=== PATIENT | female | born 1940 | race Caucasian/White ===

== ENCOUNTER 2019-09-28 20:00 | Emergency (ER) | payer MEDICARE, SELFPAY ==
--- NOTE | ~2019-09-28 | XR_ITS ---
EXAMINATION: XR humerus LT, XR shoulder LT min 2V EXAM DATE: 09/28/2019 20:33 (accession [id number]), 09/28/2019 20:34 (accession [id number]) INDICATION: Initial encounter following injury, with pain of the left shoulder. TECHNIQUE: The following left shoulder projections obtained: frontal projection , Grashey, and scapul ar Y view (4+ views). 2 orthogonal projections left humerus. There is no prior study for comparison. FINDINGS: Acute closed posttraumatic and mildly comminuted fracture of the left humeral neck and grea ter tuberosity. There could be some impaction but only mild displacement. There is no humeral disloca tion. Scapula, other portions of the humerus are unremarkable. IMPRESSION: Acute left humeral neck/greater tuberosity fractures. Reviewed, dictated and finalized at location . IMPRESSION: Acute left humeral neck/greater tuberosity fractures.
[2019-09-28 20:04] VITALS: BP 178/71; PULSE 64; RESP 15; TEMP 37; O2SAT 100
--- NOTE | 2019-09-28 20:05 | ED.UPPEXIN ---
HPI - Extremity Injury (Upper) General Chief Complaint: Extremity Injury, Upper Stated Complaint: FALL Time Seen by Provider: 09/28/19 20:05 History of Present Illness HPI narrative: She tripped over her shoes and fell backwards into a marble table. She struck her shoulder. She has pain in the lateral upper arm. The pain is mild with the arm at her side. Worse with flexion at the elbow and shoulder abduction. She did not hit her head. No other pain or injury. Related Data Allergies Allergy/AdvReac Type Severity Reaction Status Date / Time amlodipine Allergy Unknown Rash Verified 10/01/19 10:45 Penicillins Allergy Unknown Unknown Verified 10/01/19 10:45 Review of Systems Review of Systems: All systems reviewed & are unremarkable except as noted in HPI and below Constitutional: Constitutional: Denies weakness Eyes: Eyes: Denies change in vision Cardiovascular: Cardiovascular: Denies chest pain Respiratory: Respiratory: Denies dyspnea Musculoskeletal: Musculoskeletal: Denies back pain Neurologic: Denies dizziness, Denies syncope, Denies numbness and Denies weakness [facility] Family History Family History Mother Diabetes mellitus Hypertension Social History Social History Smoking status: Never smoker Second hand tobacco smoke exposure: No Alcohol intake: never Exam Const: General: healthy appearing, no acute distress and alert Orientation/consciousness: patient oriented x3 HENMT: Head: normal to inspection Resp: Effort & Inspection: normal respiratory effort Cardio: Other: 2 + left radial pulse Skin: General skin exam: normal color Wounds: no wounds Neuro: General: patient oriented x3, moves all extremities and CN's II-XI intact bilaterally Speech: normal speech Extrem: Other: Normal appearance. Pain with active ROM in elbow and shoulder. Resists passive ROM. Course Vital Signs Vital signs: Vital Signs Temperature 37.0 C 09/28/19 20:04 Pulse Rate 64 09/28/19 20:04 Respiratory Rate 15 09/28/19 20:04 Blood Pressure 178/71 H 09/28/19 20:04 Pulse Oximetry 100 09/28/19 20:04 Temperature 37.0 C 09/28/19 20:04 Pulse Rate 64 09/28/19 20:04 Respiratory Rate 15 09/28/19 20:04 Blood Pressure 178/71 H 09/28/19 20:04 Pulse Oximetry 100 09/28/19 20:04 MDM - Extremity Injury (Upper) Medical Records Attestation: I reviewed the patient's medical records. Imaging Data Radiologist's impression: ITS Impressions Humerus X-Ray 09/28/19 20:37 IMPRESSION: Acute left humeral neck/greater tuberosity fractures. Shoulder X-Ray 09/28/19 20:37 IMPRESSION: Acute left humeral neck/greater tuberosity fractures. Discharge Plan Discharge Clinical Impression: Fracture of neck of humerus Patient Disposition: Home, Self-Care Condition: Stable Instructions: Proximal Humerus Fracture (ED) Prescriptions: No Action hydrocodone-acetaminophen [[place]] 5-325 mg tablet 1 tablet PO Q6H PRN (Reason: pain) Qty: 20 RF: 0 metoprolol succinate 25 mg tablet extended release 24 hr 25 mg PO DAILY Qty: 90 RF: 3 valsartan-hydrochlorothiazide 320-25 mg tablet 1 tablet PO DAILY Qty: 90 RF: 3 hydralazine 50 mg tablet 50 mg PO BID Qty: 180 RF: 1 Follow-up/Referrals: Zina Salas MD [Primary Care Provider] - Fede Martinez MD [Physician] - 2 Days Discharge Date/Time: 09/28/19 21:39
[2019-09-28] MEDS: IBUPROFEN 600 MG TABLET PO (20:36)
== END 2019-09-28 21:39 | disposition home or self-care (01) ==
PROVIDERS: Emergency Provider Emergency Medicine; PCP Family Medicine
DX: S42.252A Displaced fracture of greater tuberosity of left humerus, initial encounter for closed fracture (principal); S42.292A Other displaced fracture of upper end of left humerus, initial encounter for closed fracture; W18.09XA Striking against other object with subsequent fall, initial encounter
CPT/HCPCS: 73030; 73060; 99283; 99284; A9270

== ENCOUNTER 2019-12-11 11:41 | Inpatient (IN) | payer MEDICARE, SELFPAY ==
[2019-12-11 12:25] VITALS: BMI 30.3
--- NOTE | 2019-12-11 13:23 | PM.IMHP ---
H&P: HPI History of Present Illness Date/Time: 12/11/19 13:23 Chief complaint: hyponatremia Narrative: Gretchen Stephenson is a 79 year old female Who has a history of having hypertension. The patient has been on various blood pressure medication. She has been on valsartan with hydrochlorothiazide. Patient stated that her legs have been weak and that she feels like she cannot grain picker her feet that they are shuffling. She denies feeling dizzy or lightheaded. She says she is pretty active. She was a physical therapy. She had a fall about 3 months ago she broke her left humerus and had been going to physical therapy for that. She had seen Dr. Martinez in for the left humerus fracture. The patient went for routine checkup yesterday at her primary care doctor's office Dr. risa Salas and she had some labs drawn yesterday. Today she was called by primary care doctor explaining that her sodium was 116 and that she needed to come to be admitted to the hospital. The patient is very anxious about being admitted. She was a direct admit from home. She has already taken all over medication from home. Patient was admitted to medical-surgical floor for observation date of service is 12/11/2019 Review of Systems Review of Systems: All systems reviewed & are unremarkable except as noted in HPI and below Constitutional: Constitutional: Reports as per HPI and Reports no additional constitutional complaints Eyes: Eyes: Reports as per HPI and Reports no additional eye complaints ENT: Reports system reviewed and no additional complaints, except as documented and Reports Normal hearing present Cardiovascular: Cardiovascular: Reports no additional cardiovascular complaints Respiratory: Respiratory: Reports no additional respiratory complaints and Reports no additional respiratory complaints Gastrointestinal: Gastrointestinal: Reports as per HPI and Reports no additional gastrointestinal complaints Musculoskeletal: Musculoskeletal: Reports no additional musculoskeletal complaints Integumentary/Breasts: Skin/Breast: Reports system reviewed and no additional complaints, except as docu and Reports as per HPI Neurologic: Reports system reviewed and no additional complaints, except as documented, Reports as per HPI and Reports Normal hearing present Psychiatric: Psychiatric: Reports no additional psychiatric complaints and Reports as per HPI Endocrine: Endocrine: Reports no additional endocrine complaints Hematologic/Lymphatic: Hematologic/Lymphatic: Reports no additional hematologic/lymphatic complaints Allergic/Immunologic: Allergic/Immunologic: Reports no additional allergic/immunologic complaints [facility] Past Medical History Medical History (Updated 12/11/19 @ 13:27 by Shani Sage NP) Fracture of proximal end of left humerus Hypertension Seasonal allergies Surgical History Surgical History (Updated 12/11/19 @ 13:26 by Shani Sage NP) S/P tonsillectomy and adenoidectomy Family History Family History (Updated 12/11/19 @ 13:27 by Shani Sage NP) Mother Diabetes mellitus Hypertension Father Malignant neoplasm of prostate Sibling due to motor vehicle traffic accident Social History Social History Smoking status: Never smoker Second hand tobacco smoke exposure: No Alcohol intake: never Substance use: never Substance use type: does not use Gender identity (if verbalized by the patient): Female Spiritual care concerns: Yes Agree to blood products: Yes Meds Home Medications and Allergies Home Medications Medication Instructions Recorded Confirmed Type metoprolol succinate 25 mg 25 mg PO DAILY #90 tablet 04/10/19 12/11/19 Rx tablet,extended release 24 hr hydralazine 50 mg tablet 50 mg PO BID #180 tablet 08/07/19 12/11/19 Rx fluticasone propionate 50 1 spray INTRANASAL BID PRN MDD 10 12/09/19 12/11/19 History mcg/actuation na
--- NOTE | 2019-12-11 13:44 | ADMGEN ---
This patient, Gretchen Stephenson, was admitted to [facility] Surg Room 311-01. Patient/family oriented to hospital policies and general routines including ID bracelet, bed and alarms, visiting hours, pain management, procedures, bathroom and other care routines, personal items, smoking policy, room service/diet, and visiting hours. Information on how to activate the Rapid Response Team has been discussed. Patient/Family are encouraged to report perceived risks to care and to ask questions if they do not understand what they are told or what they should do.
[2019-12-11 13:47] LABS: Basophils Absolute Auto 0.1 K/mm3 (0.0-0.1); Basophils Percent Auto 0.7 % (0.2-1.2); Eosinophils Percent Auto 0.3 % (0-4.4); Hematocrit 32.5 % (37.0-47.0); Hemoglobin 11.5 g/dL (12.0-15.0); Immature Granulocyte Absolute 0.05 K/mm3 (0.00-0.031); Immature Granulocyte Percent A 0.5 % (0-0.5); Lymphocytes Absolute Auto 1.43 K/mm3 (0.9-3.2); Lymphocytes Percent Auto 14.1 % (18.3-44.2); Mean Corpuscular HGB Conc 35.4 g/dl (32-36); Mean Corpuscular Hemoglobin 29.6 pg (26-34); Mean Corpuscular Volume 83.5 fl (80-100); Mean Platelet Volume 9.8 fl (7.4-10.4); Monocytes Absolute Auto 0.8 K/mm3 (0.1-0.6); Monocytes Percent Auto 7.6 % (2.6-8.5); Neutrophils Absolute Auto 7.8 K/mm3 (1.3-6.7); Neutrophils Percent Auto 76.8 % (45.5-73.1); Platelet Count Result 329 k/mm3 (150-375); Red Blood Count 3.89 M/mm3 (4.2-5.4); Red Cell Distribution Width 12.3 % (11.5-14.5); White Blood Count 10.2 K/mm3 (4.5-10.0)
[2019-12-11 14:00] LABS: Magnesium 1.7 mg/dL (1.6-2.3)
[2019-12-11 14:05] LABS: Anion Gap 11 mmol/L (8-16); Blood Urea Nitrogen 17 mg/dL (7-17); Calcium 9.8 mg/dL (8.4-10.2); Carbon Dioxide 29 mmol/L (22-30); Chloride 80 mmol/L (98-107); Estimated CRCL calculation 49 ml/min; Estimated Glomerular Filt Rate > 60; Glucose 105 mg/dL (65-105); Potassium 4.8 mmol/L (3.4-5.0); Sodium 120 mmol/L (137-145)
[2019-12-11] MEDS: SODIUM CHLORIDE 0.45% 1,000 ML 75 ML IV CONT (14:33)
[2019-12-11 16:00] VITALS: BP 152/63; PULSE 66; RESP 18; TEMP 36.8; O2SAT 99
[2019-12-11] MEDS: hydrALAZINE HCL 50 MG TABLET PO (17:00)
[2019-12-11 18:54] LABS: Add Urine Microscopic? YES; Appearance Urine Clear (Clear); Bilirubin Urine Negative (Negative); Blood Urine Negative (Negative); Color Urine Yellow (Yellow); Glucose Urine UA Negative (Negative); Ketones Urine Negative (Negative); Leukocyte Esterase Ur 1+ LEU/UL (Negative); Mucus Urine Rare /lpf; Nitrate Urine Negative (Negative); Protein Urine 1+ mg/dL (Negative); Specific Grav Ur 1.011 (1.001-1.035); Urobilinogen Urine Negative mg/dL (<2.0)
[2019-12-11 18:56] LABS: Potassium Urine Random 36.5 meq/L; Sodium Urine Random 52 meq/L
[2019-12-11 19:00] LABS: Urine Cotinine NEGATIVE
[2019-12-11 20:00] VITALS: BP 148/60; PULSE 59; RESP 18; TEMP 36.7; O2SAT 99
[2019-12-11 20:44] LABS: Anion Gap 7 mmol/L (8-16); Blood Urea Nitrogen 19 mg/dL (7-17); Calcium 9.4 mg/dL (8.4-10.2); Carbon Dioxide 29 mmol/L (22-30); Chloride 81 mmol/L (98-107); Estimated CRCL calculation 40 ml/min; Estimated Glomerular Filt Rate 48; Glucose 103 mg/dL (65-105); Potassium 4.5 mmol/L (3.4-5.0); Sodium 117 mmol/L (137-145)
[2019-12-11] MEDS: SODIUM CHLORIDE 0.9% IV 1,000 ML 75 ML IV CONT (21:28)
[2019-12-12 05:52] LABS: Basophils Absolute Auto 0.1 K/mm3 (0.0-0.1); Eosinophils Absolute Auto 0.1 K/mm3 (0-0.3); Eosinophils Percent Auto 1.3 % (0-4.4); Hematocrit 33.1 % (37.0-47.0); Hemoglobin 11.8 g/dL (12.0-15.0); Immature Granulocyte Absolute 0.05 K/mm3 (0.00-0.031); Immature Granulocyte Percent A 0.5 % (0-0.5); Lymphocytes Absolute Auto 1.81 K/mm3 (0.9-3.2); Lymphocytes Percent Auto 19.3 % (18.3-44.2); Mean Corpuscular HGB Conc 35.6 g/dl (32-36); Mean Corpuscular Hemoglobin 29.8 pg (26-34); Mean Corpuscular Volume 83.6 fl (80-100); Monocytes Absolute Auto 0.9 K/mm3 (0.1-0.6); Monocytes Percent Auto 9.9 % (2.6-8.5); Neutrophils Absolute Auto 6.4 K/mm3 (1.3-6.7); Platelet Count Result 326 k/mm3 (150-375); Red Blood Count 3.96 M/mm3 (4.2-5.4); Red Cell Distribution Width 12.2 % (11.5-14.5); White Blood Count 9.4 K/mm3 (4.5-10.0)
[2019-12-12 05:53] VITALS: BP 160/82; PULSE 64; RESP 18; TEMP 36.4; O2SAT 98
[2019-12-12 06:07] LABS: Anion Gap 10 mmol/L (8-16); Blood Urea Nitrogen 17 mg/dL (7-17); Calcium 9.4 mg/dL (8.4-10.2); Carbon Dioxide 26 mmol/L (22-30); Chloride 84 mmol/L (98-107); Estimated CRCL calculation 54 ml/min; Estimated Glomerular Filt Rate > 60; Glucose 103 mg/dL (65-105); Sodium 120 mmol/L (137-145)
[2019-12-12 08:26] VITALS: PULSE 80
[2019-12-12] MEDS: METOPROLOL SUCCINATE EXT REL 25 MG TABCR PO (08:26)
[2019-12-12] MEDS: hydrALAZINE HCL 50 MG TABLET PO ×2 (08:26→17:44)
[2019-12-12 08:30] VITALS: PULSE 80; RESP 18; O2SAT 98
[2019-12-12 10:11] LABS: Anion Gap 11 mmol/L (8-16); Blood Urea Nitrogen 16 mg/dL (7-17); Calcium 9.5 mg/dL (8.4-10.2); Carbon Dioxide 27 mmol/L (22-30); Chloride 86 mmol/L (98-107); Estimated CRCL calculation 44 ml/min; Estimated Glomerular Filt Rate 54; Glucose 131 mg/dL (65-105); Potassium 4.2 mmol/L (3.4-5.0); Sodium 124 mmol/L (137-145)
[2019-12-12] MEDS: SODIUM CHLORIDE 0.9% IV 1,000 ML 75 ML IV CONT (12:53)
--- NOTE | 2019-12-12 14:04 | PM.IMPN ---
Progress Note: A&P Assessment and Plan (1) Hyponatremia: Code(s): E87.1 - Hypo-osmolality and hyponatremia Status: Acute Assessment and Plan: Patient was referred to ED by PCP for hyponatremia which was noted on routine labs. At presentation, sodium was 120 and declined to 117. She reports poor PO intake. Sodium has improved to 124. Increased by 7 points in 13 hours. She was started on half NS and transitioned to NS. Will discontinue NS at this time to prevent too rapid correction. Discontinue fluid restriction diet to allow for intake of free water. Repeat sodium level this evening to ensure appropriate rate of correction. Hold HCTZ (2) Hypertension: Code(s): I10 - Essential (primary) hypertension Status: Acute Assessment and Plan: BP evaluated today and is mildly elevated at 160/82. Continue hydralazine and metoprolol Hold HCTZ Monitor blood pressure daily (3) Muscle cramps: Code(s): R25.2 - Cramp and spasm Status: Acute Assessment and Plan: Resolved. Likely secondary to hyponatremia. Additional electrolytes are stable. (4) Fracture of proximal end of left humerus: Qualifiers: Encounter type: subsequent encounter Fracture type: closed Fracture morphology: other fracture Fracture alignment: nondisplaced Code(s): S42.202A - Unspecified fracture of upper end of left humerus, initial encounter for closed fracture Status: Acute Assessment and Plan: Sustained fracture following a fall on 09/28/2019. She has been followed by Dr. Martinez and has been treated conservatively. She is still participating in PT/OT. She denies pain at this time. (5) Seasonal allergies: Code(s): J30.2 - Other seasonal allergic rhinitis Status: Chronic Assessment and Plan: Chronic. No acute issues. Continue fluticasone Subjective Date/time seen: 12/12/19 14:04 Interval history: Date of service: 12/12/2019 Gretchen Stephenson is a 79 year old female with a history of HTN who is seen in follow up for hyponatremia. She feels well and has no complaints at this time. She is eating and drinking well. She denies body aches, cramps, headache, confusion, nausea, vomiting, fever, chills, dizziness, lightheadedness, shortness of breath, cough, chest pain, palpitations, dysuria, or hematuria. Review of Systems Review of Systems: Narrative: 12 systems reviewed with pertinent positives and negatives as per HPI. Exam Narrative: Exam Narrative: Ms. Stephenson is a well-nourished, well-appearing 79-year-old female who is sitting up at the bedside eating lunch. She appears comfortable and is in NARD. HR 64, BP 160/82, RR 18, T 97.6, 98% on room air Neuro: awake, alert and oriented x4, speech clear, no focal neuro deficits noted HEENMT: normocephalic, atraumatic, EOMI, sclerae anicteric, moist oral mucosa, tongue midline, nares patent Neck: supple, no lymphadenopathy Respiratory: clear to auscultation bilaterally, nonlabored breathing Cardio: regular rate, regular rhythm with S1-S2 Abdomen: nondistended, normoactive bowel sounds, soft, nontender to palpation, no rigidity or guarding Extremities: scant pedal edema, no erythema, cyanosis, clubbing, or tenderness to palpation, DP pulses 2+ bilaterally Skin: no rashes or lesions, warm and dry Psych: appropriate mood and affect, judgment and insight intact Objective Data Vital Signs Vital Signs: Vital Signs - 24 hr 12/11/19 16:00 12/11/19 20:00 12/12/19 05:53 Temperature 98.3 F 98.0 F 97.6 F Pulse Rate 66 59 L 64 Respiratory Rate 18 18 18 Blood Pressure 152/63 H 148/60 H 160/82 H Pulse Oximetry 99 99 98 12/12/19 08:26 12/12/19 08:30 Temperature Pulse Rate 80 80 Respiratory Rate 18 Blood Pressure Pulse Oximetry 98 Intake/Output Intake/Output: Intake & Output 12/09/19 12/10/19 12/11/19 12/12/19 23:59 23:59 23:59 23:59 Intake Total 490 17
[2019-12-12 16:00] VITALS: BP 133/42; PULSE 74; RESP 18; TEMP 36.4; O2SAT 100
[2019-12-12 16:41] LABS: Sodium 122 mmol/L (137-145)
[2019-12-12] MEDS: SODIUM CHLORIDE 0.9% IV 1,000 ML 50 ML IV CONT (17:48)
[2019-12-12 22:00] VITALS: BP 163/88; PULSE 86; RESP 16; TEMP 36.7; O2SAT 100
[2019-12-13 00:17] LABS: Sodium 123 mmol/L (137-145)
[2019-12-13 02:00] VITALS: BP 144/69; PULSE 78; RESP 16; TEMP 36.8; O2SAT 100
[2019-12-13 06:00] VITALS: BP 151/64; PULSE 71; RESP 20; TEMP 36.8; O2SAT 95
[2019-12-13 06:25] LABS: Hematocrit 31.3 % (37.0-47.0); Mean Corpuscular HGB Conc 35.1 g/dl (32-36); Mean Corpuscular Hemoglobin 30.6 pg (26-34); Mean Corpuscular Volume 86.9 fl (80-100); Mean Platelet Volume 10.3 fl (7.4-10.4); Platelet Count Result 314 k/mm3 (150-375); Red Cell Distribution Width 12.8 % (11.5-14.5); White Blood Count 9.3 K/mm3 (4.5-10.0)
[2019-12-13 06:36] LABS: Anion Gap 9 mmol/L (8-16); Blood Urea Nitrogen 23 mg/dL (7-17); Calcium 9.5 mg/dL (8.4-10.2); Carbon Dioxide 26 mmol/L (22-30); Chloride 92 mmol/L (98-107); Estimated CRCL calculation 44 ml/min; Estimated Glomerular Filt Rate 54; Glucose 98 mg/dL (65-105); Magnesium 1.9 mg/dL (1.6-2.3); Potassium 4.1 mmol/L (3.4-5.0); Sodium 127 mmol/L (137-145)
[2019-12-13 08:43] VITALS: PULSE 68
[2019-12-13] MEDS: hydrALAZINE HCL 50 MG TABLET PO ×2 (08:43→16:26)
[2019-12-13] MEDS: METOPROLOL SUCCINATE EXT REL 25 MG TABCR PO (08:43)
[2019-12-13 12:09] LABS: Sodium 127 mmol/L (137-145)
[2019-12-13 14:00] VITALS: BP 147/69; PULSE 87; RESP 14; TEMP 36.6; O2SAT 99
--- NOTE | 2019-12-13 14:09 | PM.IMPN ---
Progress Note: A&P Assessment and Plan (1) Hyponatremia: Code(s): E87.1 - Hypo-osmolality and hyponatremia Status: Acute Assessment and Plan: Patient was referred to ED by PCP for hyponatremia which was noted on routine labs. At presentation, sodium was 120 and declined to 117. She reports poor PO fluid intake. She was initially started on half NS and transitioned to NS. Fluid restriction diet was initiated. Sodium inceased by 7 points in 24 hours. NS was discontinued at that time to prevent too rapid correction and fluid restriction was discontinued to promote free water intake. Levels decreased mildly, therefore NS was restarted at slower rate. This morning, sodium was 127, therefore NS was again discontinued. Upon repeat this afternoon, sodium remained stable at 127. Resume NS at 60 ml/hr. Repeat sodium level this evening to ensure appropriate rate of correction. Stop Valsartan-HCTZ. Hopeful discharge tomorrow if sodium continues to improve at appropriate rate and >130. (2) Hypertension: Code(s): I10 - Essential (primary) hypertension Status: Acute Assessment and Plan: BP evaluated today and is fairly well controlled at 151/64. Continue hydralazine and metoprolol Stop valsartan-HCTZ. Will be discontinued at discharge. PCP has already prescribed single-agent valsartan 320 mg daily. Will begin valsartan. Monitor blood pressure daily (3) Muscle cramps: Code(s): R25.2 - Cramp and spasm Status: Acute Assessment and Plan: Resolved. Likely secondary to hyponatremia. Additional electrolytes are stable. (4) Fracture of proximal end of left humerus: Qualifiers: Encounter type: subsequent encounter Fracture type: closed Fracture morphology: other fracture Fracture alignment: nondisplaced Code(s): S42.202A - Unspecified fracture of upper end of left humerus, initial encounter for closed fracture Status: Acute Assessment and Plan: Sustained fracture following a fall on 09/28/2019. She has been followed by Dr. Martinez and has been treated conservatively. She is still participating in PT/OT. She denies pain at this time. (5) Seasonal allergies: Code(s): J30.2 - Other seasonal allergic rhinitis Status: Chronic Assessment and Plan: Chronic. No acute issues. Continue fluticasone Subjective Date/time seen: 12/13/19 14:09 Interval history: Date of service: 12/12/2019 Gretchen Stpehenson is a 79 year old female with a history of HTN who is seen in follow up for hyponatremia. She is feeling well and she has no complaints today. She has been active and moving around her room without any difficulty. She denies body aches or muscle cramps. She has been urinating regularly and denies dysuria or hematuria. Her appetite has been good. She denies nausea, vomiting, fever, chills, dizziness, lightheadedness, shortness breath, cough, or chest pain. Review of Systems Review of Systems: All systems reviewed & are unremarkable except as noted in HPI and below Exam Narrative: Exam Narrative: Ms. Stephenson is a well-nourished, well-appearing 79-year-old female who is sitting in a chair by the bedside. She appears comfortable and is in NARD. HR 71, BP 151/64, RR 20, T 98.3, 95% on room air Neuro: awake, alert and oriented x4, speech clear, no focal neuro deficits noted HEENMT: normocephalic, atraumatic, EOMI, sclerae anicteric, moist oral mucosa, tongue midline, nares patent Neck: supple, no lymphadenopathy Respiratory: clear to auscultation bilaterally, nonlabored breathing Cardio: regular rate, regular rhythm with S1-S2 Abdomen: nondistended, normoactive bowel sounds, soft, nontender to palpation, no rigidity or guarding Extremities: scant pedal edema, no erythema, cyanosis, clubbing, or tenderness to palpation, DP pulses 2+ bilaterally Skin: no rashes or lesions, warm and dry Psych: appropriate mood a
[2019-12-13] MEDS: SODIUM CHLORIDE 0.9% IV 1,000 ML 50 ML IV CONT (14:28)
[2019-12-13 22:00] VITALS: BP 143/55; PULSE 76; RESP 16; TEMP 36.8; O2SAT 100
[2019-12-14 06:00] VITALS: BP 175/64; PULSE 81; RESP 16; TEMP 36.4; O2SAT 99
[2019-12-14 07:17] LABS: Anion Gap 7 mmol/L (8-16); Blood Urea Nitrogen 20 mg/dL (7-17); Calcium 9.3 mg/dL (8.4-10.2); Carbon Dioxide 27 mmol/L (22-30); Chloride 94 mmol/L (98-107); Estimated CRCL calculation 54 ml/min; Estimated Glomerular Filt Rate > 60; Glucose 90 mg/dL (65-105); Potassium 4.6 mmol/L (3.4-5.0); Sodium 128 mmol/L (137-145)
[2019-12-14] MEDS: VALSARTAN 160 MG TABLET 320 MG PO (08:56)
[2019-12-14 08:57] VITALS: PULSE 68
[2019-12-14] MEDS: hydrALAZINE HCL 50 MG TABLET PO (08:57)
[2019-12-14] MEDS: METOPROLOL SUCCINATE EXT REL 25 MG TABCR PO (08:57)
[2019-12-14] MEDS: SODIUM CHLORIDE 0.9% IV 1,000 ML 50 ML IV CONT (09:56)
--- NOTE | 2019-12-14 10:44 | PM.DS ---
DS: Admitting Diagnosis Admitting Diagnosis Admitting Diagnosis: hyponatremia DS: Discharge Diagnosis Discharge Diagnosis (1) Hyponatremia: Code(s): E87.1 - Hypo-osmolality and hyponatremia Status: Acute Assessment and Plan: Patient was directly admitted by PCP for hyponatremia which was noted on routine labs. At presentation, sodium was 120 and declined to 117. She reported poor PO fluid intake. She was initially started on half NS and transitioned to NS. Fluid restriction diet was initiated. Sodium inceased by 7 points in 24 hours. NS was discontinued at that time to prevent too rapid correction and fluid restriction was discontinued to promote free water intake. Levels decreased mildly, therefore NS was restarted at slower rate. Sodium levels stabilized and was 128 at time of discharge with slow upward trend. She will need to repeat sodium level in 1 week. Her HCTZ was discontinued. Adequate hydration was discussed. (2) Hypertension: Code(s): I10 - Essential (primary) hypertension Status: Acute Assessment and Plan: BP was monitored closely and remained generally well controlled. Continue hydralazine and metoprolol. Valsartan-HCTZ was discontinued. PCP has already prescribed single-agent valsartan 320 mg daily and this is ready for pick-up at pharmacy. (3) Muscle cramps: Code(s): R25.2 - Cramp and spasm Status: Acute Assessment and Plan: Resolved. Likely secondary to hyponatremia. (4) Fracture of proximal end of left humerus: Qualifiers: Encounter type: subsequent encounter Fracture alignment: nondisplaced Fracture morphology: other fracture Fracture type: closed Code(s): S42.A - Unspecified fracture of upper end of left humerus, initial encounter for closed fracture Status: Acute Assessment and Plan: Sustained fracture following a fall on 09/28/2019. She has been followed by Dr. Martinez and has been treated conservatively. She is still participating in PT/OT. She denies pain at this time. (5) Seasonal allergies: Code(s): J30.2 - Other seasonal allergic rhinitis Status: Chronic Assessment and Plan: Chronic. No acute issues. Continue fluticasone DS: Summary Hospital Course Reason for hospitalization: Hyponatremia Hospital Course: Date of admission: 12/11/2019 Date of discharge: 12/14/2019 Gretchen Stephenson is a 79 year old female with a history of HTN and recent left proximal humerus fracture who was directly admitted to the hospitalist service on 12/11/2019 by request of her PCP following routine labs demonstrating acute hyponatremia. She complained of leg weakness and lightheadedness. At presentation, VSS, sodium 117, Cr 1.1, BUN 19, and additional electrolytes stable. She was admitted to the hospitalist service for further evaluation and treatment of hyponatremia. Please see above for further details. Her symptoms resolved and she was feeling back to her usual state of health. She was extremely eager for discharge. Given her overall improvement and stabilization of sodium levels with upward trend, she was determined to no longer require inpatient care and was felt to be stable for discharge. We discussed maintaining adequate hydration. She will repeat her sodium level in 1 week. We discussed worrisome signs and symptoms for which to return and she was educated on her medications. She was discharged in hemodynamically stable condition on 12/14/2019. Status at Discharge Functional status at discharge: independent ambulation Overall status at discharge: patient is back to baseline Time Spent with Patient Time attestation: Total time spent providing and/or coordinating discharge services: 45 minutes Time spent: Greater than 30 minutes Exam Narrative: Exam Narrative: Ms. Stephenson is a well-nourished, well-appearing 79-year-old female who is walking around the room. She appears comfortable and is in NARD
[2019-12-14 11:25] VITALS: BP 150/72
[2019-12-15 05:05] LABS: Osmolality, Urine 321 mOsm/kg (50-1200)
== END 2019-12-14 11:35 | disposition home or self-care (01) | DRG 641 ==
PROVIDERS: Family Medicine; Nurse Practitioner; Physician Assistant; Admitting Provider Family Medicine; PCP Family Medicine; Visit Provider Internal Medicine
DX: E87.1 Hypo-osmolality and hyponatremia (principal); I10 Essential (primary) hypertension; R25.2 Cramp and spasm; J30.2 Other seasonal allergic rhinitis; S42.202D Unspecified fracture of upper end of left humerus, subsequent encounter for fracture with routine healing; W19.XXXD Unspecified fall, subsequent encounter; Z79.899 Other long term (current) drug therapy
CPT/HCPCS: 36415; 80048; 80307; 81001; 83735; 83935; 84133; 84295; 84300; 85025; 85027; 87086; 96360; 96361; A9270; G0378; J7030

== ENCOUNTER 2019-12-19 09:38 | Outpatient (CLI) | payer MEDICARE, SELFPAY ==
[2019-12-19 10:23] LABS: Sodium 130 mmol/L (137-145)
== END 2019-12-19 09:39 | disposition home or self-care (01) ==
LOC: ANHLAB 09:40
PROVIDERS: PCP Family Medicine; Visit Provider Physician Assistant
DX: E87.1 Hypo-osmolality and hyponatremia (principal)
CPT/HCPCS: 36415; 84295

== ENCOUNTER 2020-02-05 10:13 | Outpatient (CLI) | payer MEDICARE, SELFPAY ==
--- NOTE | ~2020-02-05 | US_ITS ---
EXAMINATION: US pelvic complete w TV DATE: 02/05/2020 11:23 INDICATION: Postmenopausal bleeding. Comparison:No prior studies for comparison. TECHNIQUE: Multiple transabdominal and endovaginal sonographic images of the pelvis performed. FINDINGS: The uterus measures 6.5 x 3.9 x 3.4 cm. There are scattered coarse calcifications. There is a 2.2 cm uterine fibroid. The endometrial complex measures 2 cm. The ovaries are not visualized. There is no free fluid in the pelvis. There are no abnormal masses seen on either side. IMPRESSION: 1. Uterine fibroid measuring 2.2 cm. Additional coarse calcifications in the uterus are likely due to degenerating fibroids. 2: Thickened endomtrial complex. The differential diagnosis includes endometrial hyperplasia, polyp a nd carcinoma. Biopsy is recommended. Reviewed, dictated and finalized at location A. NING REPRESENTATIVE IMPRESSION: 1. Uterine fibroid measuring 2.2 cm. Additional coarse calcifications in the ut erus are likely due to degenerating fibroids. 2: Thickened endomtrial complex. The differential diagnosis includes endometria l hyperplasia, polyp and carcinoma. Biopsy is recommended.
== END 2020-02-05 10:14 | disposition home or self-care (01) ==
PROVIDERS: PCP Physician Assistant; Visit Provider Obstetrics & Gynecology
DX: N95.0 Postmenopausal bleeding (principal); D25.9 Leiomyoma of uterus, unspecified
CPT/HCPCS: 76830; 76856

== ENCOUNTER → 2020-05-21 05:14 | Outpatient (CLI) | payer MEDICARE, SELFPAY ==
[2020-05-21 19:22] LABS: SARS-CoV-2 RNA PCR Negative
== END ==
PROVIDERS: PCP Physician Assistant; Visit Provider Internal Medicine Cardiovascular Disease
DX: Z01.812 Encounter for preprocedural laboratory examination (principal); Z20.822 Contact with and (suspected) exposure to COVID-19
CPT/HCPCS: C9803; U0003; U0005

== ENCOUNTER 2020-05-24 01:28 | Day surgery (SDC) | payer MEDICARE, SELFPAY ==
[2020-05-21 16:52] VITALS: BMI 30.7
[2020-05-24] VITALS (10 sets, daily range): BP systolic 132–184; BP diastolic 57–96; PULSE 65–94; RESP 16–22; TEMP 36.5; O2SAT 96–100; BMI 31.2
--- NOTE | 2020-05-24 07:32 | ECHO_ITS ---
Patient Info Name: Gretchen Stephenson Age: 79 years : 1940 Gender: Female Ht: 65 in Wt: 184 lbs BSA: 1.98 m2 HR: 93 bpm Exam Date: 05/24/2020 8:05 AM Exam Location: [facility] Patient Status: Outpatient Admit Date: 05/24/2020 Staff Ordering Physician: Wayne Laureano DO Manager Of Construction: Anuj Valentine, MARI, RT Attending Provider: Wayne Laureano DO Referring Physician: Georgi LEON; Exam Type: CA echo transesophageal Study Info Indications I36.9 - Nonrheumatic tricuspid valve disorder, unspecified Complete two-dimensional, color flow and Doppler transesophageal echocardiogram is performed with contrast to opacify the left ventrical and to improve the deliniation of the left ventrical endocarial boarders. Procedure Details Risks/benefits/alternative treatment discussed with patient and she was agreeable to procedure. Patient monitored monitor, HR and BP and pulse ox. BP 160/80 mmHg and HR 72 bpm and Pulse ox >98%. Patient given cetacaine spray x 2 to posterior oropharynx. Versed 2 mg and fentanyl 25 mcg IV given for conscious sedation. Multiple images obtained at varied levels in esophagus. Agitated saline given x1. BREANNE probe withdrawn and no blood noted on BREANNE probe. Patient tolered procedure well with no complications. Summary 1. Left ventricular chamber dimension is normal. 2. There is moderately increased left ventricular wall thickness. 3. Left ventricular systolic function is normal with an estimated ejection fraction 60-65%. 4. Left atrial chamber dimension is moderately enlarged. 5. Right atrial chamber dimension is severely enlarged. 6. There is mild aortic valve sclerosis. 7. The mitral valve has mildly thickened leaflets and moderately calcified annulus. 8. There is severe 2 jet mitral valve regurgitation. 9. The tricuspid valve leaflets are mildly thickened. 10. There is severe tricuspid valve regurgitation. 11. RVSP is not measured or calculated. 12. There is trace pulmonic regurgitation. Left Ventricle Left ventricular systolic function is normal with an estimated ejection fraction 60-65%. Left ventricular chamber dimension is normal. There is moderately increased left ventricular wall thickness. The left ventricular diastolic function is indeterminate. Right Ventricle Right ventricular chamber dimension is normal. Right ventricular systolic function is normal. Left Atria Left atrial chamber dimension is moderately enlarged. Right Atria Right atrial chamber dimension is severely enlarged. Atrial Septum Thin interatrial septum with no shunt. Intact interatrial septum visualized by color flow and agitated saline imaging. Atrial Appendage There is no thrombus visualized in the left atrial appendage. Aortic Valve The aortic valve is trileaflet. There is mild aortic valve sclerosis. There is no aortic valve stenosis. There is no aortic valve regurgitation. Pulmonic Valve There is trace pulmonic regurgitation. Mitral Valve The mitral valve has mildly thickened leaflets and moderately calcified annulus. There is severe 2 jet mitral valve regurgitation. There is no mitral valve stenosis. Tricuspid Valve The tricuspid valve leaflets are mildly thickened. RVSP is not measured or calculated. There is severe tricuspid valve regurgitation. Pericardium/Pleural There is no pericardial effusion. Inferior Vena Cava IVC is not well seen.. Aorta The aortic root size at the sinus of Valsalva is normal. Report Signatures Elec
--- NOTE | 2020-05-24 08:07 | SUR.PREOP ---
Patient arrives ambulatory to [facility] for planned BREANNE today. PIV established, VSS obtained, consent signed. Patient updated on plan of care and verbalizes understanding. Will continue to monitor.
--- NOTE | 2020-05-24 08:15 | SUR.PREOP ---
0815- Dr. Laureano notified that there is no H & P on file prior to procedure.
--- NOTE | 2020-05-24 10:43 | SUR.PHASEII ---
Patient discharged follow BREANNE. Education provided at discharge including scheduled follow-up appointment, moderate sedation and BREANNE handouts, when to notify the provider, and medication regimen. Patient and spouse verbalize understanding. PIV removed. VS as charted. Patient denies pain. Patient escorted to vehicle by staff via wheelchair, where she was picked up by her .
== END 2020-05-24 10:45 | disposition home or self-care (01) ==
PROVIDERS: PCP Physician Assistant; Visit Provider Internal Medicine Cardiovascular Disease
PROC: (CPT 93312; principal; 2020-05-24 08:00)
DX: I08.1 Rheumatic disorders of both mitral and tricuspid valves (principal); I11.9 Hypertensive heart disease without heart failure; I27.20 Pulmonary hypertension, unspecified
CPT/HCPCS: 93312; 93320; 93325; C9803; J2250; J3010; J7040; U0003; U0005

== ENCOUNTER → 2020-07-20 02:57 | Outpatient (CLI) | payer MEDICARE, SELFPAY ==
[2020-07-20 18:14] LABS: SARS-CoV-2 RNA PCR Negative
== END ==
PROVIDERS: PCP Physician Assistant; Visit Provider Specialist
DX: Z01.812 Encounter for preprocedural laboratory examination (principal); Z20.822 Contact with and (suspected) exposure to COVID-19
CPT/HCPCS: C9803; U0003; U0005

== ENCOUNTER 2020-07-23 00:37 | Day surgery (SDC) | payer MEDICARE, SELFPAY ==
[2020-07-23] VITALS (15 sets, daily range): BP systolic 111–181; BP diastolic 48–83; PULSE 51–76; RESP 14–21; TEMP 35.8–36.6; O2SAT 94–99; BMI 32.0
--- NOTE | 2020-07-23 07:22 | SUR.PREOP ---
ARRIVES TO [facility] AMBULATORY W/ AT SIDE FOR SCHEDULED LHC W/ DR. FIGUEROA. ORIENTED TO ROOM, PLAN OF CARE, PROCEDURE. ANXIOUS. REASSURANCE GIVEN. DENIES CP OR SOB TODAY. IV STARTED BY RAMON ORTIZ RN, VS OBTAINED, LABS SENT, SKIN PREPPED, CONSENT SIGNED. WILL CONTINUE TO MONITOR.
[2020-07-23 07:48] LABS: Basophils Absolute Auto 0.1 K/mm3 (0.0-0.1); Eosinophils Absolute Auto 0.1 K/mm3 (0-0.3); Eosinophils Percent Auto 1.3 % (0-4.4); Hematocrit 37.5 % (37.0-47.0); Hemoglobin 12.5 g/dL (12.0-15.0); Immature Granulocyte Absolute 0.03 K/mm3 (0.00-0.031); Immature Granulocyte Percent A 0.3 % (0-0.5); Lymphocytes Absolute Auto 1.47 K/mm3 (0.9-3.2); Mean Corpuscular HGB Conc 33.3 g/dl (32-36); Mean Corpuscular Hemoglobin 29.7 pg (26-34); Mean Corpuscular Volume 89.1 fl (80-100); Mean Platelet Volume 10.1 fl (7.4-10.4); Monocytes Absolute Auto 0.7 K/mm3 (0.1-0.6); Monocytes Percent Auto 8.6 % (2.6-8.5); Neutrophils Absolute Auto 6.2 K/mm3 (1.3-6.7); Neutrophils Percent Auto 71.8 % (45.5-73.1); Platelet Count Result 209 k/mm3 (150-375); Red Blood Count 4.21 M/mm3 (4.2-5.4); Red Cell Distribution Width 13.9 % (11.5-14.5); White Blood Count 8.6 K/mm3 (4.5-10.0)
[2020-07-23 07:57] LABS: Anion Gap 10 mmol/L (8-16); Blood Urea Nitrogen 15 mg/dL (7-17); Calcium 10.1 mg/dL (8.4-10.2); Carbon Dioxide 28 mmol/L (22-30); Chloride 97 mmol/L (98-107); Estimated Glomerular Filt Rate > 60; Glucose 102 mg/dL (65-105); Potassium 4.2 mmol/L (3.4-5.0); Sodium 135 mmol/L (137-145)
[2020-07-23 08:05] LABS: Prothrombin Time 13.3 Seconds (11.1-14.7)
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
--- NOTE | 2020-07-23 08:35 | SUR.PREOP ---
DR. FIGUEROA HERE TO SEE PT AT BEDSIDE.
--- NOTE | 2020-07-23 09:20 | P.PCNCC_ITS ---
Cardiac Cath Procedure Note Date of procedure:: 07/23/20 Performing physician:: Aquiles Palomo MD Indication:: mitral valve regurgitation preop evaluation prior to cardiothoracic surgery consultation Brief clinical history:: this is a 80-year-old woman who has been reporting symptoms of dyspnea she has been found to have significant mitral as well as tricuspid valve insufficiency. She is anticipating consultation with cardiothoracic surgery. Left heart catheterization was recommended by her access spec prior to this appointment. She is not known to have coronary disease previous to this. Procedure Procedure performed:: Coronary angiography left ventriculography Sedation/Medication given:: fentanyl 50 mg Versed 2 mg case start time 9:01 a.m. case end time 9:15 a.m. sedation provided by Glory Gu RN, trained observer Access site:: right femoral Estimated blood loss:: 10-15 cc Procedure note:: the patient was brought to the cardiac catheterization lab in the postabsorptive state the right femoral triangle was prepared and draped in the usual fashion. Anesthesia was provided with 1% lidocaine infiltrated loca lly. Using the modified Seldinger technique a 5 Hungarian sheath was placed into the femoral artery after this left heart catheterization was carried out. I used a 5 Hungarian FL4 catheter to engage and inject the left coronary artery and then a 5 Hungarian JR4 catheter to engage inject the right coronary artery. After this a 5 Hungarian angled pigtail catheter was placed into the left ventricle were central hemodynamics were demonstrated and left ventriculography was injected in DUTTON projection. After this the case was terminated angiogram was done of the femoral artery through the sheath after which it was determined the sheath would be removed with manual compression. 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 she left the ammunition assembly ii laborer with no evidence of a groin hematoma and there were no apparent procedural complications. Findings:: Hemodynamics: Staffed pressure is 178 over 72 left ventricle 1 72/0 end-diastolic pressure 16 there is no significant transvalvular gradient on pullback across the aortic valve. Left ventricle: The LV is normal in size contractility is hyperdynamic with an ejection fraction visually estimated to be about 75%. There is a heavily calcified mitral valve annulus and there is severe mitral regurgitation noted left main coronary artery is nicely patent the left anterior descending is a medium caliber artery attending down to around the apex. The LAD And its branches are free of significant disease. circumflex is a medium caliber artery giving rise to a bifurcating marginal branch and a posterior branch. The ostium of the circumflex just after the left main has a discrete 80% stenosis. Right coronary artery is moderate to large caliber and dominant to the posterior circulation the right coronary artery appears to be smooth and free of disease. Conclusion:: 1. Single-vessel coronary artery disease with high-grade ostial stenosis of the circumflex about 80% lesion is noted. 2. Hyperdynamic left ventricular systolic function 3. severe mitral regurgitation Aquiles Palomo MD [facility]
--- NOTE | 2020-07-23 15:35 | SUR.PHASEII ---
REVIEWED ALL DISCHARGE INSTRUCTIONS AND FOLLOW UP CARE W/ PT AND . ALL QUESTIONS ANSWERED. VOICED UNDERSTANDING. DENIES CP OR SOB. VSS. STEADY GAIT. R. GROIN SITE DRESSING C/D/I, CLEAR; SOFT, NONTENDER; NO BLEEDING, REDNESS OR HEMATOMA NOTED. R. PEDAL PULSE STRONG. DISCHARGED HOME, OUT VIA WC TO 'S WAITING CAR, WITH ALL PERSONAL BELONGINGS AND DISCHARGE PACKET. VOICES NO C/O. NO DISTRESS NOTED.
== END 2020-07-23 15:35 | disposition home or self-care (01) ==
PROVIDERS: PCP Physician Assistant; Visit Provider Specialist
PROC: 4A023N7 Measurement of Cardiac Sampling and Pressure, Left Heart, Percutaneous Approach (ICD-10-PCS; CPT 93452; principal; 2020-07-23 08:30)
DX: Z01.810 Encounter for preprocedural cardiovascular examination (principal); R06.00 Dyspnea, unspecified; I34.0 Nonrheumatic mitral (valve) insufficiency; I36.1 Nonrheumatic tricuspid (valve) insufficiency; I10 Essential (primary) hypertension; I27.20 Pulmonary hypertension, unspecified
CPT/HCPCS: 36415; 80048; 85025; 85610; 93458; C1887; C1894; C9803; J0461; J1644; J2250; J3010; J7040; U0003; U0005

== ENCOUNTER 2021-03-21 07:34 | Outpatient (CLI) | payer MEDICARE, SELFPAY ==
--- NOTE | 2021-03-21 07:50 | ECHO_ITS ---
Patient Info Name: Gretchen Stephenson Age: 80 years : 1940 Gender: Female Ht: 65 in Wt: 185 lbs BSA: 1.99 m2 HR: 72 bpm BP: 169 / 80 mmHg Technical Quality: Fair Exam Date: 03/21/2021 8:05 AM Exam Location: [facility] Patient Status: Outpatient Admit Date: 03/21/2021 Staff Ordering Physician: Wayne Laureano DO Social Services Analyst: Cait Delcid RDCS Attending Provider: Wayne Laureano DO Referring Physician: Georgi LEON; Exam Type: CA echo doppler color flow Study Info Indications Z98.890 - OTHER SPECIFIED POSTPROCEDURAL STATES Complete two-dimensional, color flow and Doppler transthoracic echocardiogram is performed. Summary 1. Complete two-dimensional, color flow and Doppler transthoracic echocardiogram is performed. 2. Left ventricular chamber dimension is normal. 3. Left ventricular systolic function is normal, estimated at 60-65%. 4. The left ventricular diastolic function is abnormal. 5. E/e' 25 is elevated. 6. Global longitudinal strain is normal at -17.5%. 7. Left atrial chamber dimension is moderately enlarged. 8. Right atrial chamber dimension is mildly enlarged. 9. There is mild aortic valve sclerosis. 10. The mitral valve has severely calcified annulus. 11. Evidence of mitral valve repair and annuloplasty ring. 12. There is mild to moderate mitral valve regurgitation. 13. There is mild to moderate tricuspid valve regurgitation. 14. Moderate pulmonary hypertension, estimated pulmonary arterial systolic pressure is 58 mmHg. 15. There is mild pulmonic regurgitation. Left Ventricle E/e' 25 is elevated. Global longitudinal strain is normal at -17.5%. Left ventricular chamber dimension is normal. Left ventricular systolic function is normal, estimated at 60-65%. The left ventricular diastolic function is abnormal. Right Ventricle Right ventricular systolic function is normal and with normal TAPSE 1.8 cm. Right ventricular chamber dimension is normal. Left Atria Left atrial chamber dimension is moderately enlarged. Right Atria Right atrial chamber dimension is mildly enlarged. Aortic Valve The aortic valve is trileaflet. There is mild aortic valve sclerosis. There is no aortic valve stenosis. There is no aortic valve regurgitation. Pulmonic Valve There is mild pulmonic regurgitation. Mitral Valve The mitral valve has severely calcified annulus. Evidence of mitral valve repair and annuloplasty ring. There is no mitral valve stenosis. There is mild to moderate mitral valve regurgitation. Tricuspid Valve The tricuspid valve leaflets are mildly thickened. There is mild to moderate tricuspid valve regurgitation. Moderate pulmonary hypertension, estimated pulmonary arterial systolic pressure is 58 mmHg. Pericardium/Pleural There is no pericardial effusion. Inferior Vena Cava Normal inferior vena cava with >50% collapse upon inspiration consistent with normal right atrial pressure, 5 mmHg. Aorta The aortic root size at the sinus of Valsalva is normal. Left Ventricular Outflow Tract Name Value Normal LVOT 2D LVOT Diameter 1.9 cm LVOT Doppler LVOT Peak Gradient
== END 2021-03-21 07:35 | disposition home or self-care (01) ==
PROVIDERS: PCP Family Medicine; Visit Provider Internal Medicine Cardiovascular Disease
DX: Z98.890 Other specified postprocedural states (principal); I08.3 Combined rheumatic disorders of mitral, aortic and tricuspid valves
CPT/HCPCS: 93306; 93798

== ENCOUNTER 2021-04-13 08:30 | Outpatient (RCR) | payer MEDICARE, SELFPAY | END 2021-04-13 14:16 | disposition home or self-care (01) | LOC: ANHCPREHAB 08:30 | PROVIDERS: PCP Family Medicine; Visit Provider Internal Medicine Cardiovascular Disease | DX: Z95.2 Presence of prosthetic heart valve (principal) | CPT/HCPCS: 93798 ==

== ENCOUNTER 2023-04-10 12:19 | Outpatient (CLI) | payer OTHER, MEDICARE, SELFPAY ==
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
== END 2023-04-10 12:20 | disposition home or self-care (01) ==
LOC: ANHIMG 12:20
PROVIDERS: PCP Family Medicine; Visit Provider Family Medicine
DX: R07.9 Chest pain, unspecified (principal); M25.569 Pain in unspecified knee; M25.572 Pain in left ankle and joints of left foot; S22.42XA Multiple fractures of ribs, left side, initial encounter for closed fracture; J84.9 Interstitial pulmonary disease, unspecified; I51.7 Cardiomegaly
CPT/HCPCS: 71046; 71100; 73562; 73610

== ENCOUNTER 2023-04-10 13:19 | Outpatient (CLI) | payer OTHER, SELFPAY ==
--- NOTE | ~2023-04-10 | CT_ITS ---
CT of the Abdomen: Indication: Abdominal pain Technique: 2.5 mm axial scans were obtained through the abdomen following intravenous administration of 100 cc of Omnipaque 350. Dose reduction technique was used on this scan by utilizing automated ex posure control and iterative reconstruction technique. The dose-length product (DLP) was 584.49 mGy-c m. Findings: Scans through the lung bases are unremarkable. The liver, spleen, pancreas, gallbladder, adrenals and kidneys are within normal limits. There are at herosclerotic calcifications of the aorta. No lymphadenopathy. Visualized bowel loops are unremarkable. No ascites. Impression: No significant abnormalities seen. Reviewed, dictated and finalized at location M. RTATION EXAMINER Impression: No significant abnormalities seen.
[2023-04-10 13:51] LABS: Estimated Glomerular Filt Rate 60
== END 2023-04-10 13:20 ==
PROVIDERS: PCP Family Medicine; Visit Provider Family Medicine
DX: R10.9 Unspecified abdominal pain (principal)
CPT/HCPCS: 74160; Q9967

== ENCOUNTER 2024-07-19 11:32 | Emergency (ER) | payer MEDICARE, SELFPAY ==
--- NOTE | ~2024-07-19 | US_ITS ---
EXAMINATION:US venous doppler LE BI INDICATION:Lower extremity swelling TECHNIQUE: Multiple grayscale, color flow and Doppler images of the right and left lower extremity de ep venous systems were obtained and reviewed. COMPARISON:No prior studies for comparison. FINDINGS: The common femoral, superficial femoral and popliteal veins demonstrate normal respiratory variation, augmentation and compressibility. Color flow is also seen within the posterior tibial, pe roneal, greater saphenous and profunda veins. IMPRESSION: 1: No lower extremity deep venous thrombosis. Reviewed, dictated and finalized at location A.
--- OUTSIDE RECORDS SUMMARY | 2024-07-19 11:35 | XMS_ITS | Clinical Summary ---
Author Organization [facility] Address [address] [place] [address] Care Team Providers Care Plant Operator Helper Name Role Phone [place] Laureano DO Unavailable [phone] Michela Dick MD Primary Care Provider [phone] Natalya Dhillon MD Unavailable [phone] Babar Guzman MD Unavailable [phone] Benedict Chapman Unavailable [phone] Allergies Active Allergy Reactions Criticality Noted Date Comments Doxycycline Vomiting Low 04/20/2020 Penicillins Unknown 03/10/2020 When patient was a child. Medications fluticasone (VERAMYST) 27.5 mcg/actuation nasal sprayIndication s:Allergic Rhinitis Administer 2 sprays into each nostril 2 (two) times a day as needed Active multivitamin capsuleIndicati ons:Vitamin Deficiency Take 1 capsule by mouth every morning Active loratadine 10 mg capsuleIndicati ons:Allergic Rhinitis Take 10 mg by mouth daily as needed Active ascorbic acid (VITAMIN C) 1,000 mg tablet Take 1 tablet (1,000 mg total) by mouth daily with lunch Active Ca carb-Ca gluc-Mg ox-Mg gluco 500 mg calcium -250 mg tablet Take by mouth every morning Active aspirin 81 mg enteric coated tablet Take 1 tablet (81 mg total) by mouth every morning Active hydrALAZINE (APRESOLINE) 50 mg tabletIndicatio ns:hypertension Take 1 tablet (50 mg total) by mouth 3 (three) times a day 90 tablet 1 Active metoprolol XL (TOPROL-XL) 25 mg extended release tablet Take 3 tablets (75 mg total) by mouth daily 90 tablet 1 1 Active acetaminophen 500 mg capsule Take 2 capsules (1,000 mg total) by mouth every 6 (six) hours as needed for pain 30 tablet 1 Active docusate sodium (COLACE) 100 mg capsuleIndicati ons:constipatio n Take 1 capsule (100 mg total) by mouth 2 (two) times a day 30 capsule 1 1 Active ferrous gluconate 324 mg (37.5 mg of elemental iron) tablet Take 1 tablet (324 mg total) by mouth 2 (two) times a day with meals 60 tablet 1 1 Active pravastatin (PRAVACHOL) 20 mg tablet Take 1 tablet (20 mg total) by mouth daily 2 Active mometasone (NASONEX) 50 mcg/actuation nasal spray Administer 2 sprays into each nostril daily Active Active Problems Problem Noted Date Diagnosed Date Atrial fibrillation 11/10/2020 Assessment & Plan (11/11/2020 1:44 PM CDT): Developed AF, rate 90-100s on 11/08 Amiodarone bolus x 1 and placed on PO load Converted to SR Currently SR, rate 70s medtronic DDD ppm placed Daily QTC= 456 ABLA (acute blood loss anemia) 11/05/2020 Assessment & Plan (11/11/2020 1:42 PM CDT): With a component of iron deficiency Iron supplementation Stable hgb 8.2 Consider transfusion if hgb < 7 or hemodynamically unstable Assessment & Plan (11/09/2020 11:41 AM CDT): With a component of iron deficiency Iron supplementation stable Leukocytosis 11/05/2020 Assessment & Plan (11/11/2020 1:43 PM CDT): [place] to be inflammatory post procedure. Improving Daily CBC WBC = up from 12 to 14 No fevers or chills Incisions clean and dry Pulmonary toilet, mobilize Plan to remove right IJ CVC Assessment & Plan (11/05/2020 1:22 PM CDT): [place] to be inflammatory post procedure. Improving Pulmonary toilet, mobilize Severe tricuspid regurgitation 09/10/2020 Assessment & Plan (11/10/2020 12:55 PM CDT): S/p TV repair Continue ASA, statin, and BB Strict intake and output Diuresis as tolerated Consider TTE prior to dc Severe mitral regurgitation 09/10/2020 Assessment & Plan (11/10/2020 12:56 PM CDT): POD 7 MV repair, TVrepair, PPM Chest tubes out, cxr with small bilateral effusion No temporary wires as she now has PPM. Voiding Continue low dose diuretics. PT/OT/pulmonary toilet/bowel regimen/mobilize Continue asa, BB. Assessment & Plan (11/07/2020 11:50 AM CDT): POD 3 MV repair, TVrepair, PPM Chest tubes out, cxr with small remaining effusion No temporary wires as she now has PPM. Voiding Continue low dose diuretics. PT/OT/pulmonary toilet/bowel regimen/mobilize Continue asa, BB. Single vessel coronary artery disease 09/10/2020 Assessment & Plan (11/10/2020 12:56 PM CDT): Continue asa, statin, and metoprolol. Dr Pitts consulted with home supervisor toy assembly to arrange PCI post discharge Assessment & Plan (11/09/2020 11:40 AM CDT): Continue asa, statin. Dr Pitts consulted with home supervisor toy assembly to arrange PCI post discharge Endometrial cancer 03/11/2020 Hypertension 03/11/2020 Assessment & Plan (11/10/2020 12:54 PM CDT): Continue BB, titrate hydralazine Assessment & Plan (11/07/2020 11:50 AM CDT): Continue BB, titrate hydralazine Immunizations Immunization Administration Dates Next Due Influenza, Trivalent, High D ose, Split, Preservative Free, Intramuscular 10/18/2018,11/07/2017,11/06/2016,11/20,11/17/2014,10/06/2013 Influenza, Trivalent, IM (MDV) 10/30/2012 Surgical History Surgery Date Site/Laterality Comments NO PAST SURGERIES TONSILLECTOMY/ADENOIDECTOMY HYSTERECTOMY 04/19/2020 - 05/19/2020 Medical History Medical History Date Comments Hypertension Arm fracture Hyponatremia Pulmonary hypertension (HCC) Endometrial cancer (HCC) endomet rial History of brachytherapy 05/2020 Humerus fracture 11/2019 L Family History Medical History Relation Name Comments Prostate cancer Father COPD Mother Anesthesia problems Neg Hx Relation Name Status Comments Father Mother Social History Tobacco Use Types Packs/Day Years Used Date Smoking Tobacco: Never Smokeless Tobacco: Never Tobacco Cessation:Counseling Given: Not Answered Alcohol Use Standard Drinks/Week Comments Never 0 (1 standard drink = 0.6 oz pur e alcohol) AUDIT-C Answer Date Recorded Q1: How often do you have a drink containing alc ohol? Never 04/23/2020 Q2: How many drinks containi ng alcohol do you have on a typical day when you are drinking? Patient declined 04/23/2020 Q3: How often do you have si x or more drinks on one occasion? 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 Gender Identity Not on file Sexual Orientation Not on file Obstetrics History Para Term AB IAB SAB Ectopic Multiple Livin g Live Births 1 1 1 1 Date Outcome GA Total Labor Labor/2nd/3rd Weight Sex Type Anes PTL Diana A1 A5 Name Clin Term Last Filed Vital Signs Vital Sign Reading Time Taken Comments Blood Pressure 154/80 07/03/2022 12:02 PM CDT Pulse 71 07/03/2022 12:02 PM CDT Temperature 37 C (98.6 F) 07/03/2022 12:02 PM CDT Respiratory Rate 16 07/03/2022 12:02 PM CDT Oxygen Saturation 97% 07/03/2022 12:02 PM CDT Inhaled Oxygen Concentration - - Weight 87.6 kg (193 lb 1.6 oz) 07/03/2022 12:02 PM CDT Height 162.6 cm (5' 4.02) 07/03/2022 12:02 PM C DT Body Mass Index 33.13 07/03/2022 12:02 PM CDT Plan of Treatment Health Maintenance Due Date Last Done Comments Depression Screening 1940 Osteoporosis Screening-Bone Density Scan 1942 DTaP/Tdap/Td Vaccine (1 - Tdap) 1953 Hepatitis B Screening 1960 Pneumococcal vaccine 65+ (1 of 1 - PCV) 1992 Zoster Vaccine (1 of 2) 1992 Well Visit 65+ 06/14/2007 Fall Risk Assessment 11/12/2021 11/12/2020 Influenza Vaccine (Season Ended) 2024 10/18/2018, 11/07/2017, 11/06/2016, Additional history exists Medical Devices Implanted Type Area Pastry Supervisor Device Identifier Shelf Expiration Date Model / Serial / Lot Medtronic Cardiac Rhythm Mgmt [id number] [place] S Mri Surescan 50.8x46.6mm 2 Chamber 7.4mm Pacemaker 22.5gm - [id number] - [id number] Implanted:Qty: 1 on 11/03/2020 by Parag Pitts MD at [facility] Pacemaker N/A: Heart Medtronic Inc 03/18/2022 [id number] / [id number] / [employer] [id number] Moon-Edward s 28mm 35.6mm 28mm 62mm Flexible Band Template - [id number] - [id number] Implanted:Qty: 1 on 11/03/2020 by Parag Pitts MD at [facility] N/A: Mitral Valve [employer] 10/14/2023 [id number] / [id number] / Medtronic Card Vasc Surgery [id number] Contour 3d 28mm 33mm Tricuspid Ring Annuloplasty Titanium - [id number] - [id number] Implanted:Qty: 1 on 11/03/2020 by Parag Pitts MD at [facility] N/A: Tricuspid Valve Medtronic Inc 04/08/2025 [id number] / [id number] / Medtronic Cardiac Rhythm Mgmt [id number] Tyrx 2.7x2.5in Medium Envelope Absorbable Polyarylate Minocycline - [id number] Implanted:Qty: 1 on 11/03/2020 by Parag Pitts MD at [facility] N/A: Heart Medtronic Inc 04/07/2021 [id number] / / [id number] Medtronic Cardiac Rhythm Mgmt 4965-35 Capsure Epi 4.5fr 35cm Unipolar Suture Fixation Is-1 Epicardium - [id number] - [id number] Implanted:Qty: 1 on 11/03/2020 by Parag Pitts MD at [facility] N/A: Heart Medtronic Inc 01/02/2021 4965-35 / [id number] / Medtronic Cardiac Rhythm Mgmt 5071-35 6.6fr 35cm Is-1 Unipolar Fix Screw Myocardium Lead Pacing - [id number] - [id number] Implanted:Qty: 1 on 11/03/2020 by Parag Pitts MD at [facility] N/A: Heart Medtronic Inc 01/02/2021 5071-35 / [id number] / [facility] AETNA [facility] ADVANTRA Advance Directives For more information, please contact: [phone] Documents on File Type Date Recorded Patient Rip Saw Operator Expl anation ADVANCE DIRECTIVE 04/25/2020 12:14 PM POWER OF APPLICATION PACKAGING CONSULTANT-FINANCIAL/MEDICAL ADVANCE DIRECTIVE 04/23/2020 1:34 PM POWER OF APPLICATION PACKAGING CONSULTANT-MEDICAL * Full Code (Latest Code Status on File) Date Activated Date Inactivated Comments 11/03/2020 3:00 PM 11/12/2020 7:47 PM * Full Code Date Activated Date Inactivated Comments 04/23/2020 11:41 AM 04/24/2020 4:31 PM Care Teams Plant Operator Helper Relationship Specialty Start Date End Date Michela Dick MD [address] [place] [address] PCP - General Family Medicine 01/03/21 [place] Laureano DO [address] [place] [address] Referring Physician Internal Medicine 08/30/20 Natalya Dhillon MD [address] [place] [address] Referring Physician Obstetrics and Gynecology 04/04/21 Babar Guzman MD [address] [place] [address] Consulting Physician Endocrinology Diabetes & Metabolism 04/04/21 Benedict Chapman, PA [address] [place] [address] Physician Center Mgr 04/04/21
--- OUTSIDE RECORDS SUMMARY | 2024-07-19 11:35 | XMS_ITS | Referral Summary ---
Author Organization [facility] Address [address] [place] [address] Care Team Providers Care Neck Skewer Name Role Phone [place] Laureano DO Unavailable Michela Dick MD Primary Care Provider [phone] Natalya Dhillon MD Unavailable [phone] Babar Guzman MD Unavailable [phone] Benedict Chapman Unavailable [phone] Allergies Active Allergy Reactions Criticality Noted Date [...] Assessment & Plan (11/11/2020 1:43 PM CDT): [place] to be inflammatory post procedure. Improving Daily CBC WBC = up from 12 to 14 No fevers or chills Incisions clean and dry Pulmonary toilet, mobilize Plan to remove right IJ CVC Assessment & Plan (11/05/2020 1:22 PM CDT): [place] to be inflammatory post procedure. Improving Pulmonary [...] and metoprolol. Dr Pitts consulted with home email production consultant to arrange PCI post discharge Assessment & Plan (11/09/2020 11:40 AM CDT): Continue asa, statin. 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 Gender Identity Not on file Sexual Orientation Not on file Last Filed Vital Signs Vital Sign Reading [...] 07/03/2022 12:02 PM CDT Plan of Treatment Not on file Medical Devices Implanted Type Area Facilities Maintenance Assistant Device Identifier Shelf Expiration Date Model / Serial / Lot Medtronic Cardiac Rhythm Mgmt [id number] [place] S Mri Surescan 50.8x46.6mm 2 Chamber 7.4mm Pacemaker 22.5gm - [id number] - [id number] Implanted:Qty: 1 on 11/03/2020 by Parag Pitts MD at [facility] Pacemaker N/A: Heart Medtronic Inc 03/18/2022 [id number] / [id number] / [employer] [id number] Moon-Edward s 28mm 35.6mm 28mm 62mm Flexible Band Template - [id number] - [id number] Implanted:Qty: 1 on 11/03/2020 by Parag Pitts MD at [facility] N/A: Mitral Valve [employer] 10/14/2023 [id number] / [id number] / Medtronic Card Vasc Surgery 690r28 Contour 3d 28mm 33mm Tricuspid Ring Annuloplasty Titanium - [id number] - [id number] Implanted:Qty: 1 on 11/03/2020 by Parag Pitts MD at [facility] N/A: Tricuspid Valve Medtronic Inc 04/08/2025 690R28 / [id number] / Medtronic Cardiac Rhythm Mgmt [id number] Tyrx 2.7x2.5in Medium Envelope Absorbable Polyarylate Minocycline - [id number] Implanted:Qty: 1 on 11/03/2020 by Parag Pitts MD at [facility] N/A: Heart Medtronic Inc 04/07/2021 [id number] / / [id number] Medtronic Cardiac Rhythm Mgmt 4965-35 Capsure Epi 4.5fr 35cm Unipolar Suture Fixation Is-1 Epicardium - [id number] - [id number] Implanted:Qty: 1 on 11/03/2020 by Parag Pitts MD at [facility] N/A: Heart Medtronic Inc 01/02/2021 4965-35 / [id number] / Medtronic Cardiac Rhythm Mgmt 5071-35 6.6fr 35cm Is-1 Unipolar Fix Screw Myocardium Lead Pacing - [id number] - [id number] Implanted:Qty: 1 on 11/03/2020 by Parag Pitts MD at [facility] N/A: Heart Medtronic Inc 01/02/2021 5071-35 / [id number] / Insurance [facility] ADVANTRA [facility] ADVANTRA Advance Directives For more information, please contact: [phone] Documents on File Type Date Recorded Patient Train Gateman Expl anation ADVANCE DIRECTIVE 04/25/2020 12:14 PM POWER OF STEAM SHOVEL OILER-FINANCIAL/MEDICAL ADVANCE DIRECTIVE 04/23/2020 1:34 PM POWER OF STEAM SHOVEL OILER-MEDICAL * Full Code (Latest Code Status on File) Date Activated Date Inactivated Comments 11/03/2020 3:00 PM 11/12/2020 7:47 PM * Full Code Date Activated Date Inactivated Comments 04/23/2020 11:41 AM 04/24/2020 4:31 PM Care Teams Neck Skewer Relationship Specialty Start Date End Date Michela Dick MD [address] [place] [address] PCP - General Family Medicine 01/03/21 [place] Laureano DO [address] [place] [address] Referring Physician Internal Medicine 08/30/20 Natalya Dhillon MD [address] [place] [address] Referring Physician Obstetrics and Gynecology 04/04/21 Babar Guzman MD [address] [place] [address] Consulting Physician Endocrinology Diabetes & Metabolism 04/04/21 Benedict Chapman, PA [address] [place] [address] Physician Manager Market 04/04/21
[2024-07-19 11:39] VITALS: BP 178/62; PULSE 82; RESP 20; TEMP 37.2; O2SAT 96
[2024-07-19 12:38] VITALS: PULSE 80; RESP 15; O2SAT 99
--- OUTSIDE RECORDS SUMMARY | 2024-07-19 12:46 | XMS_ITS | Referral Summary ---
Author Organization [facility] Address [address] [place] [address] Care Team Providers Care Freight Dispatcher Name Role Phone [place] Laureano DO Unavailable [phone] Michela Dick MD Primary Care Provider [phone] Natalya Dhillon MD Unavailable [phone] Babar Guzman MD Unavailable [phone] Benedict Chapman Unavailable [phone] Allergies Active Allergy Reactions Criticality Noted Date [...] Assessment & Plan (11/11/2020 1:43 PM CDT): [place] to be inflammatory post procedure. Improving Daily CBC WBC = up from 12 to 14 No fevers or chills Incisions clean and dry Pulmonary toilet, mobilize Plan to remove right IJ CVC Assessment & Plan (11/05/2020 1:22 PM CDT): [place] to be inflammatory post procedure. Improving Pulmonary [...] and metoprolol. Dr Pitts consulted with home butcher meat to arrange PCI post discharge Assessment & Plan (11/09/2020 11:40 AM CDT): Continue asa, statin. 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 Gender Identity Not on file Sexual Orientation [...] on file Medical Devices Implanted Type Area Mail Processing Machine Operator Device Identifier Shelf Expiration Date Model / Serial / Lot Medtronic Cardiac Rhythm Mgmt [id number] [place] S Mri Surescan 50.8x46.6mm 2 Chamber 7.4mm Pacemaker 22.5gm - [id number] - [id number] Implanted:Qty: 1 on 11/03/2020 by Parag Pitts MD at [facility] Pacemaker N/A: Heart Medtronic Inc 03/18/2022 [id number] / [id number] / [employer] [id number] Moon-Edward s 28mm 35.6mm 28mm 62mm Flexible Band Template - [id number] - [id number] Implanted:Qty: 1 on 11/03/2020 by Parag Pitts MD at [facility] N/A: Mitral Valve [employer] 10/14/2023 [id number] / [id number] / Medtronic Card Vasc Surgery 690r28 Contour 3d 28mm 33mm Tricuspid Ring Annuloplasty Titanium - [id number] - [id number] Implanted:Qty: 1 on 11/03/2020 by Parag Pitts MD at [facility] N/A: Tricuspid Valve Medtronic Inc 04/08/2025 690R28 / [id number] / Medtronic Cardiac Rhythm Mgmt [id number] Tyrx 2.7x2.5in Medium Envelope Absorbable Polyarylate Minocycline - [id number] Implanted:Qty: 1 on 11/03/2020 by Parag Pitts MD at [facility] N/A: Heart Medtronic Inc 04/07/2021 [id number] / / [id number] Medtronic Cardiac Rhythm Mgmt 4965-35 Capsure Epi 4.5fr 35cm Unipolar Suture Fixation Is-1 Epicardium - [id number] - [id number] Implanted:Qty: 1 on 11/03/2020 by Parag Pitts MD at [facility] N/A: Heart Medtronic Inc 01/02/2021 4965-35 / [id number] / Medtronic Cardiac Rhythm Mgmt 5071-35 6.6fr 35cm Is-1 Unipolar Fix Screw Myocardium Lead Pacing - [id number] - [id number] Implanted:Qty: 1 on 11/03/2020 by Parag Pitts MD at [facility] N/A: Heart Medtronic Inc 01/02/2021 5071-35 / [id number] / Insurance [facility] ADVANTRA [facility] ADVANTRA Advance Directives For more information, please contact: [phone] Documents on File Type Date Recorded Patient Supervisor Sewer Maintenance Expl anation ADVANCE DIRECTIVE 04/25/2020 12:14 PM POWER OF NURSE SITTER-FINANCIAL/MEDICAL ADVANCE DIRECTIVE 04/23/2020 1:34 PM POWER OF NURSE SITTER-MEDICAL * Full Code (Latest Code Status on File) Date Activated Date Inactivated Comments 11/03/2020 3:00 PM 11/12/2020 7:47 PM * Full Code Date Activated Date Inactivated Comments 04/23/2020 11:41 AM 04/24/2020 4:31 PM Care Teams Freight Dispatcher Relationship Specialty Start Date End Date Michela Dick MD [address] [place] [address] PCP - General Family Medicine 01/03/21 [place] Laureano DO [address] [place] [address] Referring Physician Internal Medicine 08/30/20 Natalya Dhillon MD [address] [place] [address] Referring Physician Obstetrics and Gynecology 04/04/21 Babar Guzman MD [address] [place] [address] Consulting Physician Endocrinology Diabetes & Metabolism 04/04/21 Benedict Chapman, PA [address] [place] [address] Physician Airline Ticket Agent 04/04/21
--- OUTSIDE RECORDS SUMMARY | 2024-07-19 12:46 | XMS_ITS | Clinical Summary ---
Author Organization [facility] Address [address] [place] [address] Care Team Providers Care Plodder Operator Name Role Phone [place] Laureano DO Unavailable [phone] Michela Dick MD Primary Care Provider [phone] Natalya Dhillon MD Unavailable [phone] Babar Guzman MD Unavailable [phone] Benedict Chapman Unavailable [phone] Allergies Active Allergy Reactions Criticality Noted Date [...] Assessment & Plan (11/11/2020 1:43 PM CDT): [place] to be inflammatory post procedure. Improving Daily CBC WBC = up from 12 to 14 No fevers or chills Incisions clean and dry Pulmonary toilet, mobilize Plan to remove right IJ CVC Assessment & Plan (11/05/2020 1:22 PM CDT): [place] to be inflammatory post procedure. Improving Pulmonary [...] and metoprolol. Dr Pitts consulted with home market superintendent to arrange PCI post discharge Assessment & Plan (11/09/2020 11:40 AM CDT): Continue asa, statin. 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 Gender Identity Not on file Sexual [...] history exists Medical Devices Implanted Type Area Educational Technology Specialist Device Identifier Shelf Expiration Date Model / Serial / Lot Medtronic Cardiac Rhythm Mgmt W3dr01 [place] S Mri Surescan 50.8x46.6mm 2 Chamber 7.4mm Pacemaker 22.5gm - [id number] - [id number] Implanted:Qty: 1 on 11/03/2020 by Parag Pitts MD at [facility] Pacemaker N/A: Heart Medtronic Inc 03/18/2022 [id number] / [id number] / [employer] [id number] Moon-Edward s 28mm 35.6mm 28mm 62mm Flexible Band Template - [id number] - [id number] Implanted:Qty: 1 on 11/03/2020 by Parag Pitts MD at [facility] N/A: Mitral Valve [employer] 10/14/2023 [id number] / [id number] / Medtronic Card Vasc Surgery 690r28 Contour 3d 28mm 33mm Tricuspid Ring Annuloplasty Titanium - [id number] - [id number] Implanted:Qty: 1 on 11/03/2020 by Parag Pitts MD at [facility] N/A: Tricuspid Valve Medtronic Inc 04/08/2025 [id number] / [id number] / Medtronic Cardiac Rhythm Mgmt [id number] Tyrx 2.7x2.5in Medium Envelope Absorbable Polyarylate Minocycline - [id number] Implanted:Qty: 1 on 11/03/2020 by Parag Pitts MD at [facility] N/A: Heart Medtronic Inc 04/07/2021 [id number] / / [id number] Medtronic Cardiac Rhythm Mgmt 4965-35 Capsure Epi 4.5fr 35cm Unipolar Suture Fixation Is-1 Epicardium - [id number] - [id number] Implanted:Qty: 1 on 11/03/2020 by Parag Pitts MD at [facility] N/A: Heart Medtronic Inc 01/02/2021 4965-35 / [id number] / Medtronic Cardiac Rhythm Mgmt 5071-35 6.6fr 35cm Is-1 Unipolar Fix Screw Myocardium Lead Pacing - [id number] - [id number] Implanted:Qty: 1 on 11/03/2020 by Parag Pitts MD at [facility] N/A: Heart Medtronic Inc 01/02/2021 5071-35 / [id number] / Insurance [facility] MedicalRA [facility] AETNA [facility] ADVANTRA Advance Directives For more information, please contact: [phone] Documents on File Type Date Recorded Patient Client Support Administrator Expl anation ADVANCE DIRECTIVE 04/25/2020 12:14 PM POWER OF REGULATORY AND COMPLIANCE TECHNICIAN-FINANCIAL/MEDICAL ADVANCE DIRECTIVE 04/23/2020 1:34 PM POWER OF REGULATORY AND COMPLIANCE TECHNICIAN-MEDICAL * Full Code (Latest Code Status on File) Date Activated Date Inactivated Comments 11/03/2020 3:00 PM 11/12/2020 7:47 PM * Full Code Date Activated Date Inactivated Comments 04/23/2020 11:41 AM 04/24/2020 4:31 PM Care Teams Plodder Operator Relationship Specialty Start Date End Date Michela Dick MD [address] [place] [address] PCP - General Family Medicine 01/03/21 [place] Laureano DO [address] [place] [address] Referring Physician Internal Medicine 08/30/20 Natalya Dhillon MD [address] [place] [address] Referring Physician Obstetrics and Gynecology 04/04/21 Babar Guzman MD [address] [place] [address] Consulting Physician Endocrinology Diabetes & Metabolism 04/04/21 Benedict Chapman, PA [address] [place] [address] Physician Fleshing Machine Operator 04/04/21
[2024-07-19 13:01] VITALS: BP 173/78; PULSE 70; RESP 16; O2SAT 100
[2024-07-19 13:06] LABS: Basophils Absolute Auto 0.1 K/mm3 (0.0-0.1); Basophils Percent Auto 0.8 % (0.2-1.2); Eosinophils Absolute Auto 0.1 K/mm3 (0-0.3); Eosinophils Percent Auto 0.8 % (0-4.4); Hematocrit 38.3 % (37.0-47.0); Hemoglobin 12.4 g/dL (12.0-15.0); Immature Granulocyte Absolute 0.05 K/mm3 (0.00-0.031); Immature Granulocyte Percent A 0.5 % (0-0.5); Lymphocytes Absolute Auto 1.82 K/mm3 (0.9-3.2); Lymphocytes Percent Auto 16.7 % (18.3-44.2); Mean Corpuscular HGB Conc 32.4 g/dl (32-36); Mean Corpuscular Volume 89.5 fl (80-100); Mean Platelet Volume 9.7 fl (7.4-10.4); Monocytes Absolute Auto 0.8 K/mm3 (0.1-0.6); Monocytes Percent Auto 7.4 % (2.6-8.5); Neutrophils Percent Auto 73.8 % (45.5-73.1); Platelet Count Result 261 k/mm3 (150-375); Red Blood Count 4.28 M/mm3 (4.2-5.4); White Blood Count 10.9 K/mm3 (4.5-10.0)
[2024-07-19 13:17] LABS: Anion Gap 8 mmol/L (4-12); Blood Urea Nitrogen 17 mg/dL (7-17); Calcium 9.7 mg/dL (8.4-10.2); Carbon Dioxide 29 mmol/L (22-30); Chloride 94 mmol/L (98-107); Estimated CRCL calculation 49 ml/min; Estimated Glomerular Filt Rate > 60; Glucose 105 mg/dL (65-110); Potassium 3.7 mmol/L (3.4-5.0); Sodium 131 mmol/L (137-145)
--- NOTE | 2024-07-19 13:48 | ED.GENADULT ---
HPI - General Adult General Chief complaint: Extremity Problem,Nontraumatic Stated complaint: Swelling/redness to right lower leg Time Seen by Provider: 07/19/24 12:33 History of Present Illness HPI narrative: Patient is an 84-year-old female who presents ER with lower extremity edema. Worsening over last couple weeks. No chest pain or shortness of breath. Has not tried compression stockings. Reports she has had slightly worsened diet that may be increased insult. No history DVT or PE. No bulging of her veins. She is curious whether she might need a diuretic to help control her edema. Recently missed an appointment with her doctor due to her falling ill. Related Data Home Medications ?Medication ?Instructions ?Recorded ?Confirmed ?Last Taken ?Type fluticasone propionate 50 1 spray intranasal PRN PRN Allergy 12/09/19 01/02/24 12/10/19 08:00 History mcg/actuation nasal Symptoms spray,suspension (Allergy Relief (fluticasone)) loratadine 10 mg tablet 10 mg PO PRN PRN Allergy Symptoms 12/09/19 01/02/24 12/07/19 08:00 History ascorbic acid (vitamin C) 1,000 mg 1 g PO DAILY 07/23/20 01/02/24 07/22/20 History tablet aspirin 81 mg tablet,delayed 81 mg PO DAILY 07/30/20 01/02/24 Unknown History release (Adult Low Dose Aspirin) calcium 500 mg tablet PO 12/22/20 01/02/24 Unknown History (carb,gluconate)-magnesium 250 mg (gluc,oxide) tablet docusate sodium 100 mg capsule 100 mg PO BID 12/22/20 01/02/24 Unknown History multivitamin 1 tablet PO DAILY 12/22/20 01/02/24 Unknown History Allergies Allergy/AdvReac Type Severity Reaction Status Date / Time amlodipine Allergy Unknown Rash Verified 07/19/24 12:40 Penicillins Allergy Unknown Unknown Verified 07/19/24 12:40 doxycycline AdvReac Severe Abdominal Verified 07/19/24 12:40 Pain Review of Systems Review of Systems: All systems reviewed & are unremarkable except as noted in HPI and below Constitutional: Constitutional: Reports no additional constitutional complaints Cardiovascular: Cardiovascular: Reports no additional cardiovascular complaints Respiratory: Respiratory: Reports no additional respiratory complaints Gastrointestinal: Gastrointestinal: Reports no additional gastrointestinal complaints Musculoskeletal: Musculoskeletal: Reports no additional musculoskeletal complaints [facility] Past Medical History Medical History Fracture of proximal end of left humerus History of vaginal delivery Hypertension On amiodarone therapy Seasonal allergies Surgical History Surgical History History of open heart surgery S/P tonsillectomy and adenoidectomy Family History Family History Mother Diabetes mellitus Hypertension ILD (interstitial lung disease) Father Malignant neoplasm of prostate Sibling due to motor vehicle traffic accident Social History Social History Smoking status: Never smoker Second hand tobacco smoke exposure: No Alcohol intake: never Substance use: never Substance use type: does not use Do You Feel Safe in your Home?: Yes Lack of Transportation: No Lack of Food: Never True Current Housing: I Have Housing Concerned About Future Housing: No Difficulty Paying Gas/Electric Bills: No Difficulty Paying for Meds: No Currently Unemployed: No Education: Bachelor's Degree Difficulty w/ Childcare or Family Care: No Living arrangements: with family Occupation/Education: retired Gender identity (if verbalized by the patient): Female Sexual Orientation (if Verbalized by the Patient): Straight or Heterosexual Spiritual care concerns: No Agree to blood products: Yes Exam Narrative: GENERAL: Well-appearing, well-nourished, and in no acute distress. HEAD: Normocephalic, atraumatic. ENT: Mucous membranes moist. CHEST: Clear to auscultation. No respiratory distress. HEART: Regular rate and rhythm. Normal peripheral pulses. EXTREMITIES: Normal range of motion. 2+ edema. SKIN: Warm, dry, no rash. NEURO: Alert and oriented x3. PSYCH: Normal mood and affect. Course Course Emergency Course: No DVT. K+ 3.7. Will give low dose lasix with 20 mEq KCL. F/u with PCP> Purchase compression socks. Vital Signs Vital signs: Vital Signs Temperature 98.9 F 07/19/24 11:39 Pulse Rate 82 07/19/24 11:39 Respiratory Rate 20 07/19/24 11:39 Blood Pressure 178/62 H 07/19/24 11:39 Pulse Oximetry 96 07/19/24 11:39 Temperature 98.9 F 07/19/24 11:39 Pulse Rate 70 07/19/24 13:01 Respiratory Rate 16 07/19/24 13:01 Blood Pressure 173/78 H 07/19/24 13:01 Pulse Oximetry 100 07/19/24 13:01 Medical Decision Making Vital Signs Vital Signs: Vital Signs Temperature 98.9 F 07/19/24 11:39 Pulse Rate 82 07/19/24 11:39 Respiratory Rate 20 07/19/24 11:39 Blood Pressure 178/62 H 07/19/24 11:39 Pulse Oximetry 96 07/19/24 11:39 Temperature 98.9 F 07/19/24 11:39 Pulse Rate 70 07/19/24 13:01 Respiratory Rate 16 07/19/24 13:01 Blood Pressure 173/78 H 07/19/24 13:01 Pulse Oximetry 100 07/19/24 13:01 Lab Data 07/19/24 13:02 07/19/24 13:02 Labs: Lab Results 07/19/24 Range/Units 13:02 WBC 10.9 H (4.5-10.0) K/mm3 RBC 4.28 (4.2-5.4) M/mm3 Hgb 12.4 (12.0-15.0) g/dL Hct 38.3 (37.0-47.0) % MCV 89.5 (80-100) fl MCH 29.0 (26-34) pg MCHC 32.4 (32-36) g/dl RDW 14.0 (11.5-14.5) % Plt Count 261 (150-375) k/mm3 MPV 9.7 (7.4-10.4) fl Immature Gran % (Auto) 0.5 (0-0.5) % Neut % (Auto) 73.8 H (45.5-73.1) % Lymph % (Auto) 16.7 L (18.3-44.2) % Lares % (Auto) 7.4 (2.6-8.5) % Eos % (Auto) 0.8 (0-4.4) % Baso % (Auto) 0.8 (0.2-1.2) % Lymph # (Auto) 1.82 (0.9-3.2) K/mm3 Lares # (Auto) 0.8 H (0.1-0.6) K/mm3 Eos # (Auto) 0.1 (0-0.3) K/mm3 Baso # (Auto) 0.1 (0.0-0.1) K/mm3 Abs Immat Gran (auto) 0.05 H (0.00-0.031) K/mm3 Absolute Neuts (auto) 8.0 H (1.3-6.7) K/mm3 Absolute Nucleated RBC 0.000 (0.0-0.012) K/mm3 Nucleated RBC % 0.0 (0.0-0.2) % Sodium 131 L (137-145) mmol/L Potassium 3.7 (3.4-5.0) mmol/L Chloride 94 L (98-107) mmol/L Carbon Dioxide 29 (22-30) mmol/L Anion Gap 8 (4-12) mmol/L BUN 17 (7-17) mg/dL Creatinine 0.76 (0.7-1.0) mg/dL Estim Creat Clear Calc 49 ml/min Estimated GFR > 60 (59 - ) Glucose 105 (65-110) mg/dL Calcium 9.7 (8.4-10.2) mg/dL Imaging Data Radiologist's impression: ITS Impressions Venous Doppler Study 07/19/24 13:24 IMPRESSION: 1: No lower extremity deep venous thrombosis. Discharge Plan Discharge Clinical Impression: Leg edema Patient Disposition: Home Condition: Stable Instructions: Edema (ED) Additional Instructions: Return the ER if you have increased weakness, you get dizzy when you go from sitting to standing, you develop fever 100.4? F, have additional concerns. Patient Language: [place] Citizen Prescriptions: New furosemide [Lasix] 20 mg tablet 20 mg PO DAILY Qty: 7 0RF potassium chloride [K-Tab] 20 mEq tablet extended release 20 meq PO DAILY Qty: 7 0RF No Action calcium carb,gluc-mag gluc,ox 500 mg calcium -250 mg tablet PO docusate sodium 100 mg capsule 100 mg PO BID multivitamin Tablet 1 tablet PO DAILY loratadine 10 mg tablet 10 mg PO PRN PRN (Reason: Allergy Symptoms) fluticasone propionate [Allergy Relief (fluticasone)] 50 mcg/actuation spray,suspension 1 spray intranasal PRN MDD 10 mg PRN (Reason: Allergy Symptoms) Rx Instructions: administer into each nostril aspirin [Adult Low Dose Aspirin] 81 mg tablet,delayed release (DR/EC) 81 mg PO DAILY ascorbic acid (vitamin C) 1,000 mg Tablet 1 g PO DAILY ferrous gluconate 324 mg (37.5 mg iron) tablet 324 mg PO BID Qty: 60 0RF hydralazine 50 mg tablet See Rx Instructions .ROUTE .COMPLEX Qty: 270 2RF Dose Instruction: TAKE 1 TABLET BY MOUTH 3 TIMES A DAY WITH FOOD Rx Instructions: TAKE 1 TABLET BY MOUTH 3 TIMES A DAY WITH FOOD pravastatin 20 mg tablet See Rx Instructions .ROUTE .COMPLEX Qty: 90 2RF Dose Instruction: TAKE 1 TABLET BY MOUTH EVERY DAY Rx Instructions: TAKE 1 TABLET BY MOUTH EVERY DAY metoprolol succinate 25 mg tablet extended release 24 hr See Rx Instructions .ROUTE .COMPLEX Qty: 270 2RF Dose Instruction: TAKE 3 TABS BY MOUTH DAILY Rx Instructions: TAKE 3 TABS BY MOUTH DAILY Follow-up/Referrals: Michela Dick MD [Primary Care Provider] - 1 Week
[2024-07-19 14:12] VITALS: BP 166/73; PULSE 70; RESP 16; O2SAT 100
== END 2024-07-19 14:12 | disposition home or self-care (01) ==
PROVIDERS: Emergency Provider Emergency Medicine; PCP Family Medicine
DX: R60.0 Localized edema (principal)
CPT/HCPCS: 36415; 80048; 85025; 93970; 99284